=== PATIENT | male | born 1955 | race Caucasian/White ===

== ENCOUNTER 2020-10-12 06:00 | Day surgery (SDC) | payer OTHER ==
[~2020-10-12] VITALS: Ht 190.5 cm; Wt 90.9 kg
[~2020-10-12 06:00] MED LIST: ATORVASTATIN CA80 MG PO; BETHANECHOL CHLO5 MG PO; BUSPIRONE HCL5 MG PO; CLINDAMYCIN HC300 MG PO; CLONAZEPAM0.5 MG PO; CLONIDINE HCL0.1 MG PO; CYMBALTA60 MG PO; FLOMAX0.4 MG PO; LORAZEPAM1 MG PO; NICORETTE2 M1 BUCCAL; TRAZODONE HCL100 MG PO; ZESTRIL10 MG PO
--- NOTE | 2020-10-12 08:09 | NUR ---
PT ALERT, ORIENTED AND MADE IT VERY APPARENT HE WAS NOT INTERESTED IN ANY VISIT. HE DID SAY HE HAD HAD SCOPES BEFORE. PT SUPPORTED BY FAMILY, GAVE ENCOURAGEMENT AND BLESSING. WILL FOLLOW NEEDED
--- NOTE | 2020-10-12 08:14 | NUR ---
10/12/20 0814 Skye Reynolds 0801-PATIENT ARRIVED TO PACU ON 6L MASK ORAL AIRWAY IN PLACE NONAROUSABLE , RR EVEN LAYING LEFT LATERAL ABDOMEN SOFT. IVF INFUSING. SB. 0807-PATIENT AROUSING EYES CLOSED MOVING ARMS. ORAL AIRWAY REMOVED. PATIENT OPENING EYES VERY DROWSY. PASSING GAS. IVF INFUSING. PATIENT REPOSITIONED SELF TO BACK.
--- NOTE | 2020-10-12 09:17 | OR ---
[facility] [address] [place], [place] [address] Signed DATE OF OPERATION: 10/12/2020 SURGEON: Suellen Crisostomo MD PREOPERATIVE DIAGNOSES: 1. Weight loss of more than 70 pounds over 18 months. 2. Lower anterior resection for colon cancer, age 33. 3. Anemia with hemoglobin 11.7 and a mean cell volume of 91. 4. Upper and lower endoscopy [address] Sanon with rectal hyperplastic polyp removed. POSTOPERATIVE DIAGNOSES: 1. Moderate distal esophagitis. 2. Small to moderate sized hiatal hernia (46-43 cm). 3. Mild diffuse hemorrhagic gastritis. 4. Poor bowel prep. 5. Colorectal anastomosis. PROCEDURES: 1. EGD with CLOtest and biopsies of the antrum and distal esophagus. 2. Sigmoidoscopy (30 cm). ESTIMATED BLOOD LOSS: None. INDICATIONS: Gt is a 64-year-old gentleman asked to see me for his upper and lower endoscopy. He has lost a little over 70 pounds the last 18 months. He is not sure why. He said he is only eating sparingly to maintain his weight. 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 He smokes about one pack of cigarettes a day. He has been following along with his primary care provider. A CT scan of the abdomen and pelvis was ordered at an outside hospital. We do not have those results. He was asked to see me for the upper and lower endoscopy. He has no upper or lower GI complaints. He did undergo his lower anterior resection with Dr. Pratt at age 33 for his colon cancer. He did go through upper and lower endoscopy with Dr. Sanon in 2015. He had a small hyperplastic polyp taken out of the rectum. Unfortunately, we only have the pathology report, but not the operative report. He gives no family history of colon cancer or polyps. I had given Gt pamphlets on both upper and lower endoscopy. He recalls the test quite well. We did review the instructions for a bowel prep line by line. He recalls the need for IV conscious sedation. Given his past medical history and his significant anxiety, he Electronically Signed By: SUELLEN CRISOSTOMO MD 10/12/20 0917 PATIENT NAME: GT VILLALBA OPERATIVE REPORT DATE OF : 55 REPORT #: [id number] PHYSICIAN: SUELLEN CRISOSTOMO MD PCP: ANN ÁLVAREZ MD REPORT IS CONFIDENTIAL AND NOT TO BE RELEASED WITHOUT AUTHORIZATION [facility] [address] [place] [address] Signed told me he would need Xanax just to get in the building. We had to add Versed on top of that when he got here in our preop area. He told me they always have to use an anesthesia provider to put him asleep. He said the Versed and fentanyl are never enough. In that regard, we did have an anesthesia provider help us and we had to add ketamine to our propofol during the procedure. Gt understands there is risk to the procedure including, but not limited to gas bloating, crampy abdominal pain, bleeding, perforation requiring surgery, and missed diagnosis. He had expressed understanding and wished to proceed. PROCEDURE NOTE: Gt was taken into our endoscopy suite and placed in the supine semi-recumbent position. The posterior oropharynx was anesthetized with Hurricaine spray. A bite block was utilized for the upper endoscopy. He was given propofol and ketamine per our nurse marine engine machinist for IV sedation and monitored anesthesia care. The adult gastroscope had been introduced and advanced out into the third portion of the duodenum under direct visualization of camera without difficulty. The duodenum and pyloric channel were unremarkable. His stomach showed very mild diffuse erythematous changes. He had a couple areas of punctate hemorrhage. Upon retroflexion of the scope, we could see he has a small to moderate sized hiatal hernia. There were no ulcerations in the stomach. The scope was withdrawn up through the area of the GE junction, which was compliant without stricture. We did not see any gastric or esophageal varices. In that regard, his preoperative blood work was unremarkable. He does have mild to moderate disruption to his Z-line. There was no Fang's mucosa. He does have mild to moderate distal esophagitis. We took a biopsy from this area for pathologic review. It was a little bit friable and I can see that there is no medication listed for his stomach. The middle and upper esophagus were unremarkable. His vocal cords and arytenoids were unremarkable. After this, the gas was suctioned out and the gastroscope removed. Gt tolerated his upper endoscopy quite well. Gt was then rotated into the left lateral decubitus position. He was maintained on his IV sedation per nurse marine engine machinist. A digital rectal exam was performed. He had a thick liquid particulate stool matter, egress from the anal canal. No obvious concerns externally. The prostate [id number] indurated, but no particular dominant nodules. The adult colonoscope was introduced and he had a pool of thick liquid particulate stool matter in the rectum. We passed the scope to the top of his rectum. He probably has at least half of the rectum maybe a little more. We could see a colorectal anastomosis. Unfortunately, he continued to have thick liquid particulate stool matter. By the time we got up around 30 cm or so, we encountered a wall of thick liquid particulate stool matter. It was simply was not safe to pass the scope any further. Consequently, the scope was slowly withdrawn and removed. No obvious pathology noted. Gt had tolerated his lower endoscopy well. Electronically Signed By: SUELLEN CRISOSTOMO MD 10/12/20 0917 PATIENT NAME: GT VILLALBA OPERATIVE REPORT DATE OF : 55 REPORT #: [id number] PHYSICIAN: SUELLEN CRISOSTOMO MD PCP: ANN ÁLVAREZ MD REPORT IS CONFIDENTIAL AND NOT TO BE RELEASED WITHOUT AUTHORIZATION [facility] [address] [place] [address] Signed RECOMMENDATIONS: Gt will follow up in my office in the next few weeks. He will need a double bowel prep and get rescheduled for his colonoscopy. He might consider H2 vahe or a proton pump inhibitor for his stomach. Suellen Crisostomo MD ALB/INDUL /[id number] cc: MD Suellen Alvarenga MD Copies: ANN ÁLVAREZ MD, ANDREW L MD ~ Electronically Signed By: SUELLEN CRISOSTOMO MD 10/12/20 0917 PATIENT NAME: GT VILLALBA OPERATIVE REPORT DATE OF : 55 REPORT #: [id number] PHYSICIAN: SUELLEN CRISOSTOMO MD PCP: ANN ÁLVAREZ MD REPORT IS CONFIDENTIAL AND NOT TO BE RELEASED WITHOUT AUTHORIZATION
--- NOTE | 2020-10-13 16:51 | PATH ---
[facility] [address] [place], [place] [address] Signed SPECIMEN(S): A ANTRUM/PYLORUS SPECIMEN(S): B DISTAL ESOPHAGUS SPECIMEN SOURCE: A. ANTRUM/PYLORUS B. DISTAL ESOPHAGUS CLINICAL HISTORY: EGD and colonoscopy. Abnormal weight loss, history of colon CA. Postop Dx: Distal esophagitis, mild gastritis, poor prep. MICROSCOPIC DESCRIPTION: Histologic sections of all submitted blocks are examined by light microscopy. These findings, together with the gross examination, support the pathologic diagnosis. FINAL PATHOLOGIC DIAGNOSIS: A. Stomach, antrum/pylorus, biopsy: - Antral mucosa with mild chronic, inactive gastritis. - Negative for Helicobacter organisms on HE stain. - Negative for dysplasia or malignancy. B. Esophagus, distal, biopsy: - Squamous epithelium with reactive epithelial changes, suggestive of reflux esophagitis. - Negative for intestinal metaplasia or malignancy. COMMENT: As part of [facility] Quality Improvement Program, specimen N was reviewed by another member of our pathology staff. NAL:NRT:cml:C2NR GROSS DESCRIPTION: Two specimens are received in two containers, labeled "FP." A. The specimen, labeled "FP, antrum biopsy," is received in formalin and consists of one matt soft tissue fragment that measures 0.2 cm in greatest dimension. The specimen is entirely submitted in cassette (A1). B. The specimen, labeled "FP, distal esophagus biopsy," is received in formalin and consists of one matt soft tissue fragment that measures 0.2 cm in greatest dimension. The specimen is entirely submitted in cassette (B1). JS (under the direct supervision of a pathologist) PATIENT NAME: YOVANNY VILLALBA PATHOLOGY DATE OF : 55 REPORT #: [id number] PHYSICIAN: CHAITANYA GARCIA PCP: ANN ÁLVAREZ MD REPORT IS CONFIDENTIAL AND NOT TO BE RELEASED WITHOUT AUTHORIZATION [facility] [address] [place] [address] Signed The Gross Description was prepared using a voice recognition system. The report was reviewed for accuracy; however, sound-alike word errors, addition and/or deletions may occur. If there is any question about this report, please contact Client Services. PERFORMING LABORATORY: The technical component was performed by [facility] [address] (Hvac R Instructor: Ute Romo MD; CLIA# [id number]). Professional interpretation was performed by [employer] [facility], [address] [address] (CLIA# [id number]). Diagnostician: Katerin Du MD Pathologist Electronically Signed 10/13/2020 Copies: ~ PATIENT NAME: YOVANNY VILLALBA PATHOLOGY DATE OF : 55 REPORT #: [id number] PHYSICIAN: CHAITANYA PATHOLOGY PCP: ANN ÁLVAREZ MD REPORT IS CONFIDENTIAL AND NOT TO BE RELEASED WITHOUT AUTHORIZATION
[2020-11-14] MEDS ORDERED: [UNRECOGNIZED DRUG - OTHER] (11:28)
[2020-11-14] MEDS ORDERED: XANAX0.5 MG PO (11:30)
== END 2020-10-12 08:45 | disposition home or self-care (01) ==
LOC: OPS 06:00 → DS 06:00 → OPS 06:45
PROVIDERS: ATTEND Colon & Rectal Surgery
PROC: 0DJD8ZZ Inspection of Lower Intestinal Tract, Via Natural or Artificial Opening Endoscopic (ICD-10-PCS; 2020-10-12)
PROC: 0DB58ZX Excision of Esophagus, Via Natural or Artificial Opening Endoscopic, Diagnostic (ICD-10-PCS; principal; 2020-10-12 06:45)
PROC: 0DB78ZX Excision of Stomach, Pylorus, Via Natural or Artificial Opening Endoscopic, Diagnostic (ICD-10-PCS; 2020-10-12 06:45)
DX: K29.51 Unspecified chronic gastritis with bleeding (principal); K20.91 Esophagitis, unspecified with bleeding; K44.9 Diaphragmatic hernia without obstruction or gangrene; D64.9 Anemia, unspecified; I10 Essential (primary) hypertension; E78.5 Hyperlipidemia, unspecified; F41.9 Anxiety disorder, unspecified; E55.9 Vitamin D deficiency, unspecified; E78.00 Pure hypercholesterolemia, unspecified; F17.210 Nicotine dependence, cigarettes, uncomplicated; Z90.49 Acquired absence of other specified parts of digestive tract; Z85.038 Personal history of other malignant neoplasm of large intestine; Z86.73 Personal history of transient ischemic attack (TIA), and cerebral infarction without residual deficits; Z20.822 Contact with and (suspected) exposure to COVID-19
CPT/HCPCS: 88305; C9803; J0690; J2250; J2704; J7121; U0003

== ENCOUNTER 2020-11-16 06:40 | Day surgery (SDC) | payer OTHER ==
[~2020-11-16] VITALS: Ht 190.5 cm; Wt 93.2 kg
[~2020-11-16 06:40] MED LIST changes: +XANAX0.5 MG PO; +[UNRECOGNIZED DRUG - OTHER]
--- NOTE | 2020-11-16 07:18 | NUR ---
COVID SWAB COLLECTED, SENT TO IN-HOUSE LAB
--- NOTE | 2020-11-16 09:30 | NUR ---
11/16/20 0930 Skye Reynolds 0999-PATIENT ARRIVED TO PACU ON 2L NC RR EVEN. PATIENT AWAKE DROWSY ORIENTED TO PACU. REPOSITIONS SELF IN BED AND HOB ELEVATED. IVF INFUSING. SB. ABDOMEN SOFT ENCOURAGED TO PASS GAS.
--- NOTE | 2020-11-16 16:50 | NUR ---
[id number]: PT ARRIVES TO [facility] DEPT FOR COLONOSCOPY AMBULATORY. THIS RN MEETS PT AT ENTRANCE OF DEPT AND DIRECTS PT TO RM 8. PT IN [employer] ON ARRIVAL. BEFORE PT DRESSES DOWN FOR PROCEDURE THIS RN MAKES PT AWARE OF COVID MEDIUM ERROR AND NEED FOR RAPID SWAB THIS AM. PT NOT HAPPY ABOUT INFORMATION, RAISES VOICE AND CURSES AT THIS RN AND THROWS HAT ACROSS ROOM IN FRUSTRATION. PT STATES HE IS NOT DOING COVID SWAB AGAIN AND IS GOING TO LEAVE. THIS RN INFORMS OR CHARGE AND ORDER ANALYST IS NOTIFIED. CHRISSY FLAHERTY IN TO TALK WITH PT WHO CONTACTS KATHRINE NGUYỄN.
--- NOTE | 2020-11-16 17:05 | NUR ---
LE 0700 IN TO CHECK PY IN. CONTS TO SWEAR AND GET LOUD WITH ANSWERS. PT WAS COOPERATIVE. SITTING QUIETLY IN ROOM NO COMMENTS AT ALL. LATER Dylon FORD RN IN TO TALK WITH PT AND . SERVICE RECOVERY GIVEN TO WHEN PT WENT TO O R. TO GET BREAKFAST. SHE STATED IM SORRY HE HASNT HAD FOOD OR COFFEE FOR A COUPLE DAYS.
--- NOTE | 2020-11-17 05:41 | OR ---
[facility] [address] [place], [place] [address] Signed DATE OF OPERATION: 11/16/2020 SURGEON: Suellen Dickey MD PREOPERATIVE DIAGNOSES: 1. Intentional weight loss of 70 pounds. 2. Anemia. 3. Hyperplastic colonic polyps in 2016. 4. Low anterior resection at age 33 for colon cancer with Dr. Pratt. 5. Hiatal hernia and distal esophagitis. 6. Upper endoscopy and sigmoidoscopy on October 12, 2020 with poor bowel prep. POSTOPERATIVE DIAGNOSES: 1. Colorectal anastomosis at 10 cm. 2. 4 mm polyp at 50 cm. 3. 6 mm polyp at 25 cm. PROCEDURE: Colonoscopy with hot biopsy. ESTIMATED BLOOD LOSS: None. INDICATIONS: Gt is a 64-year-old gentleman, asked to see me for upper and lower endoscopy. We did that back on October 12, 2020. The upper endoscopy showed the hiatal hernia with distal esophagitis. However, he denies any acid reflux symptoms. He said he would not take the medications anyways. Unfortunately, his bowel prep was quite poor as he did not take all of it. We therefore had to reschedule him for his colonoscopy with a double bowel prep. We know he has come through rehab for alcohol and now has no appetite. He said he has lost 70 pounds. He told me that is intentional. He did peanut picker smoking and said that it helps keep him relaxed. He had some mild anemia. We know he had some hyperplastic polyps removed in 2016. Amazingly at age 33, he had a low anterior resection for colon cancer. Really, he has no lower GI complaints currently. He had expressed understanding and wished to proceed. He is very aware of colonoscopy. He knows there is risk including, but not limited to gas bloating, crampy abdominal pain, bleeding, perforation requiring surgery, and missed diagnosis. Also, because of his significant past medical history along with his need for cannabis and lorazepam, we did use an anesthesia provider help us with increased monitoring sedation with propofol. That proved to be a ramirez decision. Again, he had expressed understanding and wished to Electronically Signed By: SUELLEN DICKEY MD 11/17/20 0541 PATIENT NAME: GT VILLALBA OPERATIVE REPORT DATE OF : 55 REPORT #: [id number] PHYSICIAN: SUELLEN DICKEY MD PCP: ANN ÁLVAREZ MD REPORT IS CONFIDENTIAL AND NOT TO BE RELEASED WITHOUT AUTHORIZATION [facility] [address] [place], [place] [address] Signed proceed. PROCEDURE NOTE: Gt was taken into our endoscopy suite and placed in the left lateral decubitus position. He was given monitored anesthesia care per our nurse mechanic foreman. A digital rectal exam was performed and this was unremarkable. The adult colonoscope was introduced and we could easily see his circumferential colorectal anastomosis at 10 cm. It is well healed without ulceration, recurrent cancer, and/or granulation tissue. The scope passed quite readily than the right up into the cecum itself. His prep was quite excellent. We could easily see the appendiceal orifice. The scope was then slowly withdrawn. We took pictures throughout for photodocumentation. He had 2 small polyps were removed at 50 cm and at 25 cm. The rectum was unremarkable. Upon retroflexion of the scope, there was no additional pathology noted above the anal canal. After this, the gas was suctioned out and colonoscope removed. Gt tolerated the procedure quite well. RECOMMENDATIONS: We will see Gt back in our office in 7 to 14 days to review his results. He said he gets quite anxious. We explained to him it would be fine to take his lorazepam later this afternoon as needed. Suellen Dickey MD ALB/MODL /[id number] cc: MD Ann Paige MD Chart Filed Incomplete Copies: SUELLEN DICKEY MD, MICAIAH MATTHEW MD Electronically Signed By: SUELLEN DICKEY MD 11/17/20 0541 PATIENT NAME: GT VILLALBA OPERATIVE REPORT DATE OF : 55 REPORT #: [id number] PHYSICIAN: SUELLEN DICKEY MD PCP: ANN ÁLVAREZ MD REPORT IS CONFIDENTIAL AND NOT TO BE RELEASED WITHOUT AUTHORIZATION [facility] [address] [facility] [place] [address] Signed CHART FILED INCOMPLETE ~ Electronically Signed By: SUELLEN DICKEY MD 11/17/20 0541 PATIENT NAME: GT VILLALBA OPERATIVE REPORT DATE OF : 55 REPORT #: [id number] PHYSICIAN: SUELLEN DICKEY MD PCP: ANN ÁLVAREZ MD REPORT IS CONFIDENTIAL AND NOT TO BE RELEASED WITHOUT AUTHORIZATION
--- NOTE | 2020-11-17 18:51 | PATH ---
[facility] [address] [place], [place] [address] Signed SPECIMEN(S): A POLYP AT 50 CM SPECIMEN(S): B POLYP AT 25 CM SPECIMEN SOURCE: A. POLYP AT 50 CM B. POLYP AT 25 CM CLINICAL HISTORY: Intentional weight loss, anemia, history of polyps / colon polyps. MICROSCOPIC DESCRIPTION: Histologic sections of all submitted blocks are examined by light microscopy. These findings, together with the gross examination, support the pathologic diagnosis. FINAL PATHOLOGIC DIAGNOSIS: A. Colon, polyp at 50 cm, polypectomy: - Colonic mucosa with no histopathologic abnormality. - Negative for dysplasia or malignancy. B. Colon, polyp at 25 cm, polypectomy: - Fragments of cauterized colonic mucosa with no histopathologic abnormality. - Negative for malignancy, see Comment. COMMENT: Regarding specimen A: Multiple additional deeper levels were examined. Regarding specimen B: Multiple additional deeper levels were examined. The degree of cautery precludes definitive histologic evaluation of the entire mucosa, but low-grade dysplasia is favored to be absent. NAL:cml:C2NR GROSS DESCRIPTION: Two specimens are received in two containers, labeled "FP." A. The specimen, labeled "FP, colon polyp at 50 cm," is received in formalin and consists of one matt soft tissue fragment that measures 0.2 cm in greatest dimension. The specimen is entirely submitted in cassette (A1). B. The specimen, labeled "FP, colon polyp at 25 cm," is received in formalin and consists of two matt soft tissue fragment(s) that measure 0.1-0.2 cm in greatest dimension. The specimen is entirely submitted in cassette (B1). JS (under the direct supervision of a pathologist) PATIENT NAME: YOVANNY VILLALBA PATHOLOGY DATE OF : 55 REPORT #: [id number] PHYSICIAN: CHAITANYA GARCIA PCP: ANN ÁLVAREZ MD REPORT IS CONFIDENTIAL AND NOT TO BE RELEASED WITHOUT AUTHORIZATION [facility] [address] [place] [address] Signed The Gross Description was prepared using a voice recognition system. The report was reviewed for accuracy; however, sound-alike word errors, addition and/or deletions may occur. If there is any question about this report, please contact Client Services. PERFORMING LABORATORY: The technical component was performed by [employer], [address] [place] [address] (Natural Resource Officer: Ute Romo MD; CLIA# [id number]). Professional interpretation was performed by [employer], [facility], [address] [place] [address] (CLIA# [id number]). Diagnostician: Katerin Du MD Pathologist Electronically Signed 11/17/2020 Copies: ~ PATIENT NAME: YOVANNY VILLALBA PATHOLOGY DATE OF : 55 REPORT #: [id number] PHYSICIAN: CHAITANYA PATHOLOGY PCP: ANN ÁLVAREZ MD REPORT IS CONFIDENTIAL AND NOT TO BE RELEASED WITHOUT AUTHORIZATION
== END 2020-11-16 09:55 | disposition home or self-care (01) ==
LOC: DS 06:40 → OPS 06:40 → DS 07:45 → OPS 07:45 → DS 08:45 → OPS 09:55 → DS 12-07 06:45
PROVIDERS: ATTEND Colon & Rectal Surgery
PROC: 0DBE8ZX Excision of Large Intestine, Via Natural or Artificial Opening Endoscopic, Diagnostic (ICD-10-PCS; principal; 2020-11-16 07:45)
DX: K63.5 Polyp of colon (principal); K63.89 Other specified diseases of intestine; I10 Essential (primary) hypertension; E78.5 Hyperlipidemia, unspecified; D64.9 Anemia, unspecified; R63.4 Abnormal weight loss; K20.90 Esophagitis, unspecified without bleeding; K44.9 Diaphragmatic hernia without obstruction or gangrene; F17.210 Nicotine dependence, cigarettes, uncomplicated; Z20.822 Contact with and (suspected) exposure to COVID-19; Z85.038 Personal history of other malignant neoplasm of large intestine; Z96.641 Presence of right artificial hip joint; Z96.651 Presence of right artificial knee joint
CPT/HCPCS: 88305; C9803; J0690; J2001; J2704; J7121; U0003